=== PATIENT | male | born 1995 | race Caucasian/White ===

== ENCOUNTER 2019-09-24 12:34 | Emergency (ER) | payer OTHER, SELFPAY ==
--- NOTE | 2019-09-24 12:41 | ED.GENADULT ---
HPI - General Adult General Chief complaint: Skin/Abscess/Foreign Body Stated complaint: rash on back, arms and neck Time Seen by Provider: 09/24/19 12:40 Source: patient Mode of arrival: ambulatory Limitations: no limitations History of Present Illness HPI narrative: 23-year-old male patient presents to the [facility] with complaints of a rash that he noticed started yesterday. Rashes on his back, upper shoulders, bilateral arms and chest. Patient states that 2 days ago he swam in a [place] and then that night he stayed at a friend's house that had dogs, cats and thinks he used a blanket that caused him some itching in the middle of the night. Patient denies any fevers. Denies any chest pain or shortness of breath. Related Data Allergies Allergy/AdvReac Type Severity Reaction Status Date / Time latex Allergy Rash Verified 09/24/19 12:53 Review of Systems Review of Systems: Narrative: CONSTITUTIONAL: Denies fever, chills, or sweats. EYES: Denies visual changes, redness, or discharge. ENT: Denies rhinorrhea, congestion, sore throat, or otalgia. CARDIOVASCULAR: Denies chest pain, palpitations, or edema. RESPIRATORY: Denies cough or dyspnea. GASTROINTESTINAL: Denies abdominal pain, nausea, vomiting, or diarrhea. GENITOURINARY: Denies dysuria or hematuria. SKIN: Positive rash with itching. MUSCULOSKELETAL: Denies back pain, joint pain, or myalgia. NEUROLOGIC: Denies headache, numbness, or weakness. PSYCHIATRIC: Denies anxiety or depression. PMFSH Comments At the time of my signature I agree with nursing past medical history, surgical, social, and family history. There is no relevant family history pertinent to the presenting complaint. Exam Narrative: Exam Narrative: GENERAL: Well-appearing, well-nourished, and in no acute distress. HEAD: Normocephalic, atraumatic. EYES: PERRLA and EOMI. ENT: Nares clear, no rhinorrhea or epistaxis. Mucous membranes moist. NECK: Supple. No lymphadenopathy CHEST: Clear to auscultation. No respiratory distress. HEART: Regular rate and rhythm. No murmur heard. Normal peripheral pulses. ABDOMEN: Soft, nontender, nondistended, normal active bowel sounds. EXTREMITIES: Normal range of motion. No edema. SKIN: Patient has a cluster of red papules noted to the right shoulder that appears to be in burrows. Patient also has several other small papules noted to bilateral hands various spots on the bilateral arms and chest. NEURO: No focal deficits. Alert and oriented x3. Course Vital Signs Vital signs: Vital Signs Temperature 36.7 C 09/24/19 12:45 Pulse Rate 103 H 09/24/19 12:45 Respiratory Rate 16 09/24/19 12:45 Blood Pressure 153/73 H 09/24/19 12:45 Pulse Oximetry 98 09/24/19 12:45 Temperature 36.7 C 09/24/19 12:45 Pulse Rate 103 H 09/24/19 12:45 Respiratory Rate 16 09/24/19 12:45 Blood Pressure 153/73 H 09/24/19 12:45 Pulse Oximetry 98 09/24/19 12:45 Vital signs reviewed. The patient has been informed that they may have pre-hypertension or Hypertension based on a BP reading in the department. I recommend that the patient call the primary care provider listed on their discharge instructions or a physician of their choice this week to arrange follow up for further evaluation of possible pre-hypertension or Hypertension Medical Decision Making Differential Diagnosis Differential Diagnosis: Differential diagnosis: Contact dermatitis, poison mono, poison sumac, psoriasis, eczema, allergic reaction, drug reaction, scabies, tinea syphilis, lung disease, viral exanthema, pityriasis, erythema multiforme. Discussed with patient that it looks like he might have possibly some arthropod bites possibly bedbugs. Discussed with him we will discharge him home with some promethazine to help with the outbreak. Discussed with him he needs to wash all of his sheets in hot water as well as use hydrocortisone cream to help with any itching. Patient verbalized understanding denies any other
[2019-09-24 12:45] VITALS: BP 153/73; PULSE 103; RESP 16; TEMP 36.7; O2SAT 98
== END 2019-09-24 13:08 | disposition home or self-care (01) ==
PROVIDERS: Emergency Provider Nurse Practitioner Family
DX: S40.261A Insect bite (nonvenomous) of right shoulder, initial encounter (principal); S60.562A Insect bite (nonvenomous) of left hand, initial encounter; S60.561A Insect bite (nonvenomous) of right hand, initial encounter; S40.862A Insect bite (nonvenomous) of left upper arm, initial encounter; S40.861A Insect bite (nonvenomous) of right upper arm, initial encounter; S20.369A Insect bite (nonvenomous) of unspecified front wall of thorax, initial encounter; W57.XXXA Bitten or stung by nonvenomous insect and other nonvenomous arthropods, initial encounter; J45.909 Unspecified asthma, uncomplicated
CPT/HCPCS: 99213; G0463

== ENCOUNTER 2020-03-18 16:34 | Emergency (ER) | payer OTHER, SELFPAY ==
[2020-03-18 16:40] VITALS: BP 133/90; PULSE 113; RESP 20; TEMP 37.4; O2SAT 99
--- NOTE | 2020-03-18 16:41 | ED.GENADULT ---
HPI - General Adult General Chief complaint: Upper Respiratory Infection Stated complaint: sore throat/chest congestion Time Seen by Provider: 03/18/20 16:41 Source: patient Mode of arrival: ambulatory Limitations: no limitations History of Present Illness HPI narrative: 24-year-old male patient presents to the [facility] with complaints of cold symptoms that started yesterday. Patient complained of sore throat, nasal congestion, runny nose, slight cough and a headache. Denies any chest pain or shortness of breath at this time. Denies any ear pain. Denies any abdominal pain, nausea, vomiting or diarrhea. Patient states he has had strep before in the past. Patient states he has had tubes before in the past and he is prone to sinus infections. Patient states the only thing that he has taken so far is ibuprofen. Related Data Home Medications Medication Instructions Recorded Confirmed No Home Medications 03/18/20 03/18/20 Allergies Allergy/AdvReac Type Severity Reaction Status Date / Time latex Allergy Rash Verified 03/18/20 16:45 Review of Systems Review of Systems: Narrative: CONSTITUTIONAL: Denies fever, chills, or sweats. EYES: Denies visual changes, redness, or discharge. ENT: Positive rhinorrhea, congestion, sore throat, denies otalgia. CARDIOVASCULAR: Denies chest pain, palpitations, or edema. RESPIRATORY: Positive cough, denies dyspnea. GASTROINTESTINAL: Denies abdominal pain, nausea, vomiting, or diarrhea. GENITOURINARY: Denies dysuria or hematuria. SKIN: Denies rash or itching. MUSCULOSKELETAL: Denies back pain, joint pain, or myalgia. NEUROLOGIC: Positive headache, denies numbness, or weakness. PSYCHIATRIC: Denies anxiety or depression. PMFSH Comments At the time of my signature I agree with nursing past medical history, surgical, social, and family history. There is no relevant family history pertinent to the presenting complaint. Exam Narrative: Exam Narrative: GENERAL: Well-appearing, well-nourished, and in no acute distress. HEAD: Normocephalic, atraumatic. EYES: PERRLA and EOMI. ENT: Nares with erythema and swelling noted bilaterally, no rhinorrhea or epistaxis. Mucous membranes moist. Posterior pharynx no erythema, tonsil enlargement, no exudates or lesions present. Bilateral TMs have some scar tissue noted from previous ear tubes but no erythema to the TMs. NECK: Supple. No lymphadenopathy CHEST: Clear to auscultation. No respiratory distress. HEART: Regular rate and rhythm. No murmur heard. Normal peripheral pulses. ABDOMEN: Soft, nontender, nondistended, normal active bowel sounds. EXTREMITIES: Normal range of motion. No edema. SKIN: Warm, dry, no rash. NEURO: No focal deficits. Alert and oriented x3. Course Reevaluation(s) Reevaluation #1: Reevaluated patient after strep is resulted. Notified him that his strep test today is negative. Discussed with him we will send it off to the lab for culture. Discussed with him that if the culture comes back positive in the next day or 2 then we will call him and place him on antibiotics at that time. Discussed with patient that we will go ahead and order him a Covid test and most likely they will call him sometime tomorrow to schedule his Covid test. Discussed with patient that he will need to stay out of work until he is received his results once he has received his results he needs to refer to his workplace policy on when he can return. Discussed jermaine with patient that it is recommended by the CDC that regardless of test results if he does have symptoms he needs to stay quarantined for 10 days. Patient verbalized understanding of this denies any other questions or concerns at this time. Date: 03/18/20 Time: 17:08 Vital Signs Vital signs: Vital Signs Temperature 37.4 C 03/18/20 16:40 Pulse Rate 113 H 03/18/20 16:40 Respiratory Rate 20 03/18/20 16:40 Blood Pressure 133/90 03/18/20 16:40 Pulse Oximetry 99 03/18/20 16:40 Temperatu
[2020-03-18 16:46] VITALS: BP 133/90; PULSE 113; RESP 20; TEMP 37.4; O2SAT 99
== END 2020-03-18 17:11 | disposition home or self-care (01) ==
PROVIDERS: Emergency Provider Nurse Practitioner Family
DX: Z20.822 Contact with and (suspected) exposure to COVID-19 (principal); J02.9 Acute pharyngitis, unspecified
CPT/HCPCS: 87081; 87880; 99213; G0463

== ENCOUNTER 2020-03-19 09:26 | Outpatient (NON) | payer OTHER, SELFPAY ==
[2020-03-20 17:42] LABS: SARS-CoV-2 RNA PCR Positive
== END 2020-03-19 09:27 ==
LOC: ANHCOVIDDT 09:30
PROVIDERS: Visit Provider Nurse Practitioner Family
DX: U07.1 COVID-19 (principal)
CPT/HCPCS: C9803; U0003

== ENCOUNTER 2020-11-04 15:37 | Emergency (ER) | payer OTHER, SELFPAY ==
[2020-11-04 16:15] VITALS: BP 129/71; PULSE 98; RESP 22; TEMP 36.7; O2SAT 99
--- NOTE | 2020-11-04 17:28 | ED.URI ---
HPI - URI/Sore Throat General Chief Complaint: Upper Respiratory Infection Stated Complaint: Congestion, runny Nose, Ear pain, coughing Time Seen by Provider: 11/04/20 17:28 Source: patient Mode of arrival: ambulatory Limitations: no limitations History of Present Illness HPI Narrative: Garfield London is a 25 yo male with no PMH who comes to [facility] with complaints of sinus congestion headache and multiple cold-like symptoms. Patient had Covid in March did not get the vaccine and presents again today with similar symptoms after going to [facility] for a rapid test which is negative and and PCR was sent on him. Patient states he cannot eat very much and has had the symptoms that are not really are improving with [id number] medication Related Data Allergies Allergy/AdvReac Type Severity Reaction Status Date / Time latex Allergy Rash Verified 11/04/20 16:31 Review of Systems Review of Systems: CONSTITUTIONAL: Denies fever, chills, sweats. EYES: Denies visual changes, redness, discharge. ENT: Has rhinorrhea, has congestion, has sore throat, otalgia. CARDIOVASCULAR: Denies chest pain, palpitations, edema. RESPIRATORY: Denies dyspnea, wheezing, mild cough GASTROINTESTINAL: Denies abdominal pain, nausea, vomiting, diarrhea. GENITOURINARY: Denies dysuria, hematuria, abnormal discharge SKIN: Denies rash or itching. NEUROLOGIC: Denies numbness, or focal weakness. PSYCHIATRIC: Denies anxiety or depression. PMFSH Past Medical History Medical History Suspected COVID-19 virus infection Family History Family History (Updated 11/04/20 @ 17:32 by Suha Burleson CNP) Other Heart disease Hypertension Social History Social History (Updated 11/04/20 @ 17:33 by Suha Burleson CNP) Smoking status: Never smoker Tobacco type: cigarettes Alcohol intake: current Comments At time of signature, I agree with nursing past medical, surgical, social and family history. There is no relevant family history pertinent to the presenting complaint. Exam Narrative: GENERAL: This is a well-nourished, well-developed patient, in moderate distress. HEAD: normocephalic, atraumatic. EYES: Sclera clear/white. Vision is grossly intact. EARS: External ears normal, auditory canals clear and without drainage, TMs normal without perforation. Hearing grossly intact. NOSE: External nose normal with nasal discharge, nares without redness, no rhinorrhea. THROAT: Mucous membranes moist, posterior pharynx erythema NECK: Neck supple, non-tender CARDIOVASCULAR: Tachycardic rate and rhythm without murmurs, gallops, or rubs. RESPIRATORY: Clear to auscultation. Breath sounds equal bilaterally. No wheezes, rales, or rhonchi. Respiratory rate elevated GASTROINTESTINAL: Abdomen soft, non-tender, SKIN: warm, intact with no suspicious lesions or rash, good texture and turgor. NEURO: awake, alert, and oriented to person, place and time. There were no obvious focal neurologic abnormalities. Steady gait EXTREMITIES: Normal range of motion. BACK: Nontender without deformity Course Course Emergency Course: [facility] with complaints of upper respiratory symptoms, he had a Covid test today at [facility] rapid was negative but the PCR was sent for culture Patient convinced he may have strep-this is negative Started on prednisone and Tessalon Perles, discussed quarantine with patient as well as hydration Vital Signs Vital signs: Vital Signs Temperature 98.0 F 11/04/20 16:15 Pulse Rate 98 11/04/20 16:15 Respiratory Rate 22 H 11/04/20 16:15 Blood Pressure 129/71 11/04/20 16:15 Pulse Oximetry 99 11/04/20 16:15 Temperature 98.0 F 11/04/20 16:15 Pulse Rate 98 11/04/20 16:15 Respiratory Rate 22 H 11/04/20 16:15 Blood Pressure 129/71 11/04/20 16:15 Pulse Oximetry 99 11/04/20 16:15 MDM - URI/Sore Throat Differential Diagnosis Differential diagnosis: Likely up
== END 2020-11-04 17:42 | disposition home or self-care (01) ==
PROVIDERS: Emergency Provider Nurse Practitioner
DX: J06.9 Acute upper respiratory infection, unspecified (principal); Z20.822 Contact with and (suspected) exposure to COVID-19
CPT/HCPCS: 87081; 87880; 99213; G0463

== ENCOUNTER 2024-03-06 14:35 | Emergency (ER) | payer SELFPAY ==
[2024-03-06 14:40] VITALS: BP 134/77; PULSE 105; RESP 18; TEMP 36.6; O2SAT 99
--- NOTE | 2024-03-06 16:02 | ED_ITS ---
HPI - Skin/Abscess/Foreign Bdy General Chief complaint: Wound/Laceration Stated complaint: right armpit irratation Time Seen by Provider: 03/06/24 15:54 Source: patient and RN notes reviewed Mode of arrival: ambulatory Limitations: no limitations History of Present Illness HPI narrative: Patient presents today complaining of pain and clear drainage to the right axilla x2 weeks. States there are 2 small holes in the skin where the drainage is coming from. Denies history if abscess or boils or staph infections. No [id number] treatment prior to arrival. Related Data Allergies Allergy/AdvReac Type Severity Reaction Status Date / Time latex Allergy Rash Verified 11/04/20 16:31 Review of Systems Review of Systems: CONSTITUTIONAL: Denies body aches, fever, chills, or sweats. EYES: Denies visual changes, redness, or discharge. ENT: Denies rhinorrhea, congestion, sore throat, or otalgia. CARDIOVASCULAR: Denies chest pain, palpitations, or edema. RESPIRATORY: Denies cough or dyspnea. GASTROINTESTINAL: Denies abdominal pain, nausea, vomiting, or diarrhea. GENITOURINARY: Denies dysuria or hematuria. SKIN: + drainage from right axilla MUSCULOSKELETAL: Denies back pain, joint pain, or myalgia. NEUROLOGIC: Denies headache, numbness, tingling, or weakness. PSYCH: Denies depression or anxiety. PMFSH Past Medical History Medical History (Reviewed 03/06/24 @ 18:49 by Tanya Jimenez, [facility], ) Suspected COVID-19 virus infection Family History Family History (Reviewed 03/06/24 @ 18:49 by Tanya Jimenez, [facility], ) Other Heart disease Hypertension Social History Social History (Reviewed 03/06/24 @ 18:49 by Tanya Jimenez, [facility], ) Smoking status: Never smoker Tobacco type: cigarettes Alcohol intake: current Comments At time of signature, I have reviewed and agree with nursing past medical, surgical, social and family history unless otherwise noted. Please see nursing chart for further information. There is no relevant family history pertinent to the presenting complaint Exam Narrative: GENERAL: Well-appearing, well-nourished, and in no acute distress. HEAD: Normocephalic, atraumatic. EYES: EOMI. No redness or drainage. Conjunctivae normal. ENT: Mucous membranes pink and moist. NECK: Normal AROM. CHEST: No respiratory distress. EXTREMITIES: Normal range of motion. No edema. SKIN: Warm, dry, no rash. Capillary refill normal. Normal skin turgor. Right axilla: 2 tiny puncture wounds draining clear fluid to the center of the right axilla. No surrounding erythema, induration, fluctuance. It is very mildly tender to palpation. The remainder of the axilla has some scarred sinuses consistent with Hidradenitis Suppurativa. Few similar scars to the left axilla. NEURO: No focal deficits. Alert and oriented x3. Gait steady. PSYCH: Normal affect. No signs of depression or anxiety. Course Course Level of Care: Express Care Visit Vital Signs Vital signs: Vital Signs Temperature 98 F 03/06/24 14:40 Pulse Rate 105 H 03/06/24 14:40 Respiratory Rate 18 03/06/24 14:40 Blood Pressure 134/77 03/06/24 14:40 Pulse Oximetry 99 03/06/24 14:40 Oxygen Delivery Room Air 03/06/24 14:40 Temperature 98 F 03/06/24 14:40 Pulse Rate 105 H 03/06/24 14:40 Respiratory Rate 18 03/06/24 14:40 Blood Pressure 134/77 03/06/24 14:40 Pulse Oximetry 99 03/06/24 14:40 Oxygen Delivery Room Air 03/06/24 14:40 Review MDM - Skin/Abscess/Foreign Bdy MDM Narrative Medical decision making narrative: Patient's exam is consistent with hidradenitis suppurativa. He will be treated with doxycycline. Discussed his diagnosis and characteristics. Recommend PCP or Dermatology follow-up if symptoms do not improve, or if they return in the future. Patient agrees with plan. Anticipatory guidance given. Differential Diagnosis Differential diagnosis: Likely abscess of skin or subcutaneous tissue, cellulitis, impetigo and other (Hidradenitis suppurativa) Critical Care Time Critical Care Time Critical Care Time: No Discharge Plan Discharge Clinical Impression: Hidradenitis suppurativa of right axilla Patient Disposition: Home, Self-Care Condition: Stable Instructions: Antibiotic Form, Hidradenitis Suppurativa (ED) Additional Instructions: Please take the doxycycline as prescribed until gone. Wash your arm pit daily with soap and water and dry thoroughly. Do not use any deodorant to this area until it is fully healed. If symptoms worsen in this area or any other area, please follow-up with a floor manager for further evaluation and treatment. Your blood pressure was elevated above 120/80 today at Urgent Care. This puts you above the threshold for follow up. Please schedule a followup visit with your personal physician as soon as possible, for further evaluation and treatment. Even blood pressure exceeding 120/80 may indicate pre-hypertension. Patient Language: Beninese Prescriptions: New doxycycline hyclate 100 mg tablet 100 mg PO BID 7 Days Qty: 14 0RF No Action prednisone 20 mg tablet 40 mg PO DAILY Qty: 10 0RF benzonatate [Tessalon Perles] 100 mg capsule 100 mg PO BID PRN (Reason: cough) Qty: 20 0RF Follow-up/Referrals: PHYSICIAN,[employer] [facility] [Primary Care Provider] - Stand Alone Forms: Work/School Release IP Time of Disposition: 16:04
== END 2024-03-06 16:06 | disposition home or self-care (01) ==
PROVIDERS: Emergency Provider Nurse Practitioner
DX: L73.2 Hidradenitis suppurativa (principal)
CPT/HCPCS: 99213; G0463